=== PATIENT | female | born 1995 | race Hispanic/Latino ===

== ENCOUNTER → 2024-10-31 11:11 | Outpatient (REF) | payer OTHER, SELFPAY ==
[2024-10-31 13:33] LABS: Hepatitis B Surface Antibody Positive
[2024-10-31 19:11] LABS: Rubella Positive
== END ==
LOC: OHS 11:11
PROVIDERS: ATTENDING PHYSICIAN Nurse Practitioner Family
DX: Z23 Encounter for immunization (principal)
CPT/HCPCS: 36415; 86706; 86735; 86762; 86765; 86787

== ENCOUNTER 2025-04-02 10:02 | Outpatient (RCR) | payer OTHER, SELFPAY ==
[2025-03-19 13:45] VITALS: BP 107/65
[2025-03-19] MEDS: VENOFER 110 MG IV (14:00)
[2025-03-19 15:02] VITALS: BP 96/60
[2025-03-26 10:05] VITALS: BP 109/62
[2025-03-26] MEDS: VENOFER 110 MG IV (10:25)
[2025-03-26 11:56] VITALS: BP 108/55
[2025-04-02 10:00] VITALS: BP 108/61
[2025-04-02] MEDS: VENOFER 110 MG IV (10:16)
[2025-04-02 11:33] VITALS: BP 101/60
[2025-04-02 11:50] VITALS: BP 101/62
== END 2025-04-03 08:55 | disposition home or self-care (01) ==
LOC: OID 10:02
PROVIDERS: ATTENDING PHYSICIAN Student in an Organized Health Care Education/Training Program
DX: D50.9 Iron deficiency anemia, unspecified (principal); T45.4X5A Adverse effect of iron and its compounds, initial encounter
CPT/HCPCS: 96365; J1756

== ENCOUNTER 2025-04-15 13:41 | Outpatient (RCR) | payer OTHER, SELFPAY ==
[2025-04-08] MEDS: VENOFER 110 MG IV (14:13)
[2025-04-08 14:16] VITALS: BP 107/62
[2025-04-08 15:15] VITALS: BP 108/56
[2025-04-08 15:40] VITALS: BP 104/66
[2025-04-15 13:55] VITALS: BP 105/55
[2025-04-15] MEDS: VENOFER 110 MG IV (14:08)
[2025-04-15 16:00] VITALS: BP 107/58
== END 2025-04-16 08:29 | disposition home or self-care (01) ==
LOC: OID 13:41
PROVIDERS: ATTENDING PHYSICIAN Student in an Organized Health Care Education/Training Program
DX: D50.9 Iron deficiency anemia, unspecified (principal); T45.4X5A Adverse effect of iron and its compounds, initial encounter
CPT/HCPCS: 96365; J1756

== ENCOUNTER 2025-04-30 18:18 | Emergency (ER) | payer OTHER, SELFPAY ==
[2025-04-30 18:19] VITALS: BP 111/72
[2025-04-30 18:42] LABS: Hematocrit 36.9 % (37.0-47.0); Hemoglobin 12.7 g/dL (12.0-16.0); Mean Corp Hgb Conc. 34.4 g/dL (33.0-37.0); Mean Corpuscular Volume 90.7 fL (81.0-99.0); Nucleated Red Blood Cells % 0 %; Platelet Count 247 10^3/uL (130-400); Red Cell Dist. Width 14.0 % (11.5-14.5)
[2025-04-30 18:56] LABS: ALT (SGPT) 15 U/L (0-35); AST (SGOT) 23 U/L (14-36); Albumin 5.1 g/dl (3.5-5.0); Alkaline Phosphatase 74 U/L (38-126); Blood Urea Nitrogen 11 mg/dl (7-17); Calcium 9.5 mg/dl (8.4-10.2); Carbon Dioxide 24 mmol/L (22-30); Chloride 104 mmol/L (98-107); Glucose 134 mg/dl (70-99); Potassium 4.0 mmol/L (3.5-5.1); Sodium 136 mmol/L (135-145); Total Protein 7.8 g/dl (6.3-8.2); eGFR > 60.00
[2025-04-30 19:10] LABS: Beta HCG Quantitative 486.63 mIU/ml
[2025-04-30 20:43] VITALS: BMI 25.6
[2025-04-30 20:49] VITALS: BP 111/72
[2025-04-30 21:00] VITALS: BP 106/74
[2025-04-30 22:49] VITALS: BP 109/69
[2025-04-30 23:00] VITALS: BP 106/68
--- NOTE | 2025-05-01 00:01 | ED.GENMED ---
History of Present Illness
General
Chief Complaint: Problems
Source: patient
Exam Limitations: none
Time Seen by Provider: 04/30/25 20:50
Nursing documentation reviewed up to this point in time: agreed with
History of Present Illness
History of Present Illness:
Patient to ED [facility] complaint of intermittent pelvic cramping R>L, intermittent light spotting. Symptoms started yesterday. States she was seen by PCP on Monday, had HCG of 247. She states she has an appt with [facility] for week 8.
Yesterday symptoms started. To ED tonight for eval. Denies fever/chills, n/v/d.
Past History
Past History
ED Past Medical History: None
Review of Systems
Review of Systems
Allergies reviewed?: Yes
All Other Systems: ROS reviewed and negative except as documented in HPI and ROS
Constitutional: Reports no symptoms
EENT: Reports no symptoms
Respiratory: Reports no symptoms
Cardiac: Reports no symptoms
ABD/GI: Reports no symptoms
: Reports other (intermittent pelvic cramping and vaginal spotting)
Musculoskeletal: Reports no symptoms
Skin: Reports no symptoms
Neurological: Reports no symptoms
Psychiatric: Reports no symptoms
Phy Exam
General Physical Exam
General Presentation: well appearing and no apparent distress
General age: appears stated age
General Skin: warm and dry
General Habitus: normal
General Mental: alert
General Hydration: appears well hydrated
Cardiovascular Exam
Cardiovascular Exam: regular rate/rhythm and no edema
Gastrointestinal Exam
Gastrointestinal Exam: normal bowel sounds, non tender, soft, no organomegaly, non distended and no cva tenderness
Musculoskeletal Exam
Musculoskeletal Exam: full ROM and neuro vasc intact
Skin Exam
Skin Exam: normal color, warm/dry and no rash
Psychiatric Exam
Psychiatric Exam: normal mood/affect
Course
Orders/Labs/Results
Orders:
Orders
04/30/25 18:29
Complete Blood Count/With Diff Urgent
Comprehensive Metabolic Panel Urgent
HCG, Beta Quantitative [Beta HCG Quantitative] Urgent
Is this a screen?: No
04/30/25 20:52
US W Transvaginal Urgent
Reason For Exam: Bleeding, RLQ PAIN
04/30/25 21:33
ABO [Blood Group&Type] Urgent
04/30/25 22:53
ABO2 Urgent
BBK Wristband Number:
Associate notified that ABO2 has been ordered: [id number]
Date: 04/30/25
Time: 22:10
Mental Health Social Worker ID: [id number]
Abnormal Lab Results
04/30/25
18:29
RBC 4.07 L 10^6/uL
(4.20-5.40)
Hct 36.9 L %
(37.0-47.0)
MCH 31.2 H pg
(27.0-31.0)
Creatinine 0.5 L mg/dL
(0.6-1.0)
Glucose 134 H mg/dl
(70-99)
Albumin 5.1 H g/dl
(3.5-5.0)
04/30/25 18:29
04/30/25 18:29
Vital Signs
Initial and Last Documented VS:
Initial Vital Signs
Temp Pulse Resp BP Pulse Ox
98.4 F 101 20 111/72 95
04/30/25 18:19 04/30/25 18:19 04/30/25 18:19 04/30/25 18:19 04/30/25 18:19
Last Documented Vital Signs
Temp Pulse Resp BP Pulse Ox
98.4 F 74 15 106/74 100
04/30/25 18:19 04/30/25 21:45 04/30/25 21:45 04/30/25 21:00 04/30/25 21:15
Information
Weeks gestation: Weeks: (4)
Location: N/A
*Radiology
Radiology exam reviewed: radiology read reviewed
*Pulse Oximetry
SaO2: 100
Oxygen Mode of Delivery: Room air
Patient hypoxic: no
*Critical Care Note
Total Time (30-74mins, 75-104mins- exclusive of procedures): Not Applicable
Update Note
Update Note:
Patient to ED wtih complaint of intermittent vaginal spotting and pelvic cramping x 24 hours. Reports she is 4 weeks . HCG tonight. 486.6. US report reviewed, no IUP identified, possibly due to early . Discussed lab and US
report with her Recommend repeat HCG in 2 days, follow up with OB. Dr. Alvarez consulted via tiger text, agreeable to plan. Patient given instructions on s/s to return to ED and she is agreeable to plan.
ED Attending Note
-
Portions of this chart may have been created with voice recognition software.� Occasional wrong word or��sound alike� substitutions may have occurred due to the inherent limitations of voice recognition software.
Discharge Plan
Departure
Patient Disposition: Home (Routine Discharge)
Date of Disposition: 04/30/25
Time of Disposition: 23:49
Patient with high blood pressure during this ER visit?: No
Condition: Good
Covid-19: Not Applicable
Discharge Problem:
First trimester
Instructions: symptoms
Prescriptions:
No Action
quetiapine [Seroquel] 100 mg Tablet
150 mg PO HS
1 tab PO DAILY
Referrals:
Dylon Dimas MD, Resident [Family Provider, General]
Referral Note: Follow up in 2 days for repeat HCG level
Radha Alvarez DO [Active, Gynecology] - Call in 1-3 days for appt
Activity Restrictions/Additional Instructions:
As we discussed, you will need to have your HCG level rechecked in 2 days. Follow up with your primary care doctor for your blood work. Call [facility] in the AM to schedule a follow up appointment. Return to the emergency
department immediately for increasing pain, increasing vaginal bleeding, or for any further concerns.
Interventions
Interventions:
*Risk Screen - Suicide Last Done: 04/30/25 18:19
*General Assessment Last Done: 04/30/25 18:19
*Neglect/Abuse Screening Last Done: 04/30/25 20:44
*ED- Fall Risk Assessment Last Done: 04/30/25 20:44
*ED COVID-19 Vaccine History Last Done: 04/30/25 20:44
ED-Female Genitourinary Assessment Last Done: 04/30/25 20:45
Discharge Date and Time
Print Language: INDIAN
== END 2025-05-01 00:10 | disposition home or self-care (01) ==
LOC: EMR 18:18
PROVIDERS: Student in an Organized Health Care Education/Training Program; EMERGENCY PHYSICIAN Student in an Organized Health Care Education/Training Program; FAMILY PHYSICIAN Student in an Organized Health Care Education/Training Program
DX: O46.91 Antepartum hemorrhage, unspecified, first trimester (principal); Z3A.01 Less than 8 weeks gestation of pregnancy; R10.2 Pelvic and perineal pain; O26.891 Other specified pregnancy related conditions, first trimester; J45.909 Unspecified asthma, uncomplicated; F31.9 Bipolar disorder, unspecified; Z91.040 Latex allergy status
CPT/HCPCS: 99284; 76801; 76817; 80053; 84702; 85025; 86900; 86901

== ENCOUNTER → 2025-05-02 17:19 | Outpatient (REF) | payer OTHER, SELFPAY ==
[2025-05-02 18:16] LABS: Beta HCG Quantitative 1217.50 mIU/ml
== END ==
LOC: REG 17:19
PROVIDERS: ATTENDING PHYSICIAN Student in an Organized Health Care Education/Training Program
DX: Z32.00 Encounter for pregnancy test, result unknown (principal)
CPT/HCPCS: 36415; 84702

== ENCOUNTER → 2025-05-21 11:40 | Outpatient (REF) | payer OTHER, SELFPAY | LOC: CPAP 11:40 | PROVIDERS: ATTENDING PHYSICIAN Nurse Practitioner Family | DX: Z34.01 Encounter for supervision of normal first pregnancy, first trimester (principal) | CPT/HCPCS: 87491; 87591 ==

== ENCOUNTER → 2025-08-21 08:58 | Outpatient (REF) | payer OTHER, SELFPAY | LOC: PNTC 08:58 | PROVIDERS: ATTENDING PHYSICIAN Student in an Organized Health Care Education/Training Program | DX: Z34.92 Encounter for supervision of normal pregnancy, unspecified, second trimester (principal); Z36.3 Encounter for antenatal screening for malformations; Z36.86 Encounter for antenatal screening for cervical length | CPT/HCPCS: 76811; 76817 ==

== ENCOUNTER 2025-09-05 16:30 | Emergency (ER) | payer OTHER, SELFPAY ==
[2025-09-05 16:34] VITALS: BP 96/72
[2025-09-05] MEDS: NSS 1000 IV (16:45)
--- NOTE | 2025-09-05 16:45 | ED.GENMED ---
History of Present Illness
General
Chief Complaint: Problems
Source: patient
Time Seen by Provider: 09/05/25 16:41
History of Present Illness
History of Present Illness:
TThis patient is a 29-year-old G1, P0, Rh+, estimated 22 weeks gestation who presents emergency department with complaints vaginally that started just prior to presentation. She has very very mild discomfort of the right lower quadrant, otherwise
denies abdominal or pelvic pain, dizziness, chest pain, lightheadedness, or other complaints. Patient states that her care has been uneventful and ultrasounds up until this point and been within normal limits.
Past History
Past History
ED Past Medical History: None
Social History
Tobacco: Non-smoker
Alcohol: None
Drug: None
Phy Exam
Physical Exam
Physical Exam:
GENERAL: Alert , in no apparent distress
EYE: pupils equal and reactive
NECK: Supple, no significant adenopathy.
ENT: o/p clr, mmm.
CARDIAC: Regular rate and rhythm .
LUNGS: Clear breath sounds bilaterally, no acute respiratory distress, no wheezes/rales/rhonchi
ABDOMEN: Soft, without focal tenderness, no r/g, no cvat
NEUROLOGICAL: Alert and oriented, no focal neuro deficits
SKIN: Warm and dry, skin intact.
MUSCULOSKELETAL: No edema, well perfused.
PSYCH: Normal and appropriate interaction, appropriately updset.
: (Donny Strauss present) no external bleeding noted
Course
Orders/Labs/Results
Orders:
Orders
09/05/25 16:44
Type And Crossmatch [Type+Screen] Urgent
Complete Blood Count/With Diff Urgent
Comprehensive Metabolic Panel Urgent
Prothrombin Time Urgent
09/05/25 16:48
0.9% Sodium Chloride 1000 ml [Nss] 1,000 ml IV BOLUS
Abnormal Lab Results
09/05/25
16:44
RBC 3.14 L 10^6/uL
(4.20-5.40)
Hgb 10.6 L g/dL
(12.0-16.0)
Hct 30.5 L %
(37.0-47.0)
MCH 33.8 H pg
(27.0-31.0)
Sodium 134 L mmol/L
(135-145)
BUN 5 L mg/dl
(7-17)
Creatinine 0.4 L mg/dL
(0.6-1.0)
09/05/25 16:44
09/05/25 16:44
Vital Signs
Initial and Last Documented VS:
Initial Vital Signs
Temp Pulse Resp BP Pulse Ox
98 F 115 24 96/72 96
09/05/25 16:34 09/05/25 16:34 09/05/25 16:34 09/05/25 16:34 09/05/25 16:34
Last Documented Vital Signs
Temp Pulse Resp BP Pulse Ox
98 F 93 12 96/72 96
09/05/25 16:34 09/05/25 16:45 09/05/25 16:45 09/05/25 16:34 09/05/25 16:50
Information
Weeks gestation: Weeks: (22)
Location: N/A
*Pulse Oximetry
SaO2: 96
Oxygen Mode of Delivery: Room air
Patient hypoxic: no
*Critical Care Note
Total Time (30-74mins, 75-104mins- exclusive of procedures): Not Applicable
Update Note
Update Note:
Patient presents to the Emergency Department with vaginal bleedign in pregnancy
Number and Complexity of Problems Addressed at the Encounter
� Chronic conditions affecting care:
� Acute Exacerbation and/or Progression of Chronic Illness:
� Differential Diagnosis includes: placenta previa, abrupted placenta, bleeding d/o, miscarriage, etc etc.
Amount and/or Complexity of Data to be Reviewed and Analyzed
� I performed an independent evaluation of and my interpretation is:
EKG:
CT:
Xrays:
Laboratory Studies:
Other:
� Review of other/old records reveals:
� Clinical information was obtained by an independent historian:
� Prescriptions/Medications Considered but not given:
� Further testing considered but not performed:
Risk of Complications and/or Morbidity or Mortality of Patient Management
� Social determinants of health affecting care:
� Discussion with other providers (PCP, Hospitalists, Consultants, etc):
� Escalation of care including admission/observation vs risk of discharge considered:Triage staff called L&D at that time Dr. Bill was not reachable. Patient was brought back to room 2 given hypotension and tachycardia. Patient
awake and alert. IV access obtained, bloods drawn, IV fluids started. In the interim, Dr. Bill confirms patient excepted upstairs. I spoke with L&D to alert them.
ED Attending Note
-
Portions of this chart may have been created with voice recognition software.� Occasional wrong word or��sound alike� substitutions may have occurred due to the inherent limitations of voice recognition software.
Discharge Plan
Departure
Patient Disposition: LDRP
Date of Disposition: 09/05/25
Time of Disposition: 16:45
Admit to doctor: konrad
Presentation/result/management discussed w/ accepting MD/DO: konrad
Condition: Fair
Discharge Problem:
Vaginal bleeding during
Prescriptions:
No Action
quetiapine [Seroquel] 100 mg Tablet
150 mg PO HS
1 tab PO DAILY
fluticasone propion-salmeterol [Wixela Inhub] 250-50 mcg/dose Blister With Device
1 inh INHALATION BID
Interventions
Interventions:
*Risk Screen - Suicide Last Done: 09/05/25 16:50
*General Assessment Last Done: 09/05/25 16:34
*Neglect/Abuse Screening Last Done: 09/05/25 16:34
*ED COVID-19 Vaccine History Last Done: 09/05/25 16:46
*ED Influenza Vaccine History Last Done: 09/05/25 16:46
*Nursing Disposition Last Done: 09/05/25 16:50
ED-Female Genitourinary Assessment Last Done: 09/05/25 16:46
Discharge Date and Time
Discharge Date/Time: 09/05/25 16:50
Print Language: KHMER
[2025-09-05 16:58] LABS: Hematocrit 30.5 % (37.0-47.0); Hemoglobin 10.6 g/dL (12.0-16.0); Mean Corp Hgb Conc. 34.8 g/dL (33.0-37.0); Mean Corpuscular Volume 97.1 fL (81.0-99.0); Nucleated Red Blood Cells % 0 %; Platelet Count 244 10^3/uL (130-400); Red Cell Dist. Width 12.6 % (11.5-14.5)
[2025-09-05 17:02] LABS: INR 1.03; PT 13.6 Sec (11.4-14.6)
[2025-09-05 17:06] LABS: ALT (SGPT) 14 U/L (0-35); AST (SGOT) 19 U/L (14-36); Albumin 4.3 g/dl (3.5-5.0); Alkaline Phosphatase 70 U/L (38-126); Blood Urea Nitrogen 5 mg/dl (7-17); Calcium 9.0 mg/dl (8.4-10.2); Carbon Dioxide 25 mmol/L (22-30); Chloride 103 mmol/L (98-107); Glucose 85 mg/dl (70-99); Potassium 3.5 mmol/L (3.5-5.1); Sodium 134 mmol/L (135-145); Total Protein 7.1 g/dl (6.3-8.2); eGFR > 60.00
== END 2025-09-05 16:50 ==
LOC: EMR 16:30
PROVIDERS: EMERGENCY PHYSICIAN Emergency Medicine
DX: O46.92 Antepartum hemorrhage, unspecified, second trimester (principal); Z3A.22 22 weeks gestation of pregnancy
CPT/HCPCS: 99283; 80053; 85025; 85610; 86850; 86900; 86901

== ENCOUNTER 2025-09-05 16:53 | Observation (INO) | payer OTHER, SELFPAY ==
[2025-09-05 16:56] VITALS: BP 111/57; BMI 25.6
[2025-09-05 18:18] LABS: Urine Character Clear (Clear)
[2025-09-05 18:34] LABS: Urine Red Blood Cell 0-2 /HPF (0-2)
== END 2025-09-05 19:25 | disposition short-term general hospital (02) ==
LOC: LDRP 16:53
PROVIDERS: ADMITTING PHYSICIAN Obstetrics & Gynecology
DX: O46.92 Antepartum hemorrhage, unspecified, second trimester (principal); Z3A.22 22 weeks gestation of pregnancy; J45.909 Unspecified asthma, uncomplicated; O99.512 Diseases of the respiratory system complicating pregnancy, second trimester; O99.012 Anemia complicating pregnancy, second trimester; D64.9 Anemia, unspecified; O99.342 Other mental disorders complicating pregnancy, second trimester; F31.9 Bipolar disorder, unspecified; Z91.040 Latex allergy status
CPT/HCPCS: 76815; 81003; 81015; 85460; G0378

== ENCOUNTER → 2025-09-18 11:54 | Outpatient (REF) | payer OTHER, SELFPAY | LOC: PNTC 11:54 | PROVIDERS: ATTENDING PHYSICIAN Obstetrics & Gynecology | DX: O46.92 Antepartum hemorrhage, unspecified, second trimester (principal) | CPT/HCPCS: 76816 ==